=== PATIENT | female | born 1935 | race Caucasian/White ===

== ENCOUNTER → 2016-07-27 | Outpatient (CLI) | payer OTHER ==
[~2016-07-27] MED LIST: AMLO-110 PO; ASPI81TA28 PO; CALC-20 PO; CHOL100010 PO; LEVO88TA PO; SIMV10TA5 PO
[2016-07-27 14:02] LABS: ALT/SGPT 23 U/L (12-78); AST/SGOT 14 U/L (15-37); BASO % 0.6 %; BASO ABS # 0.03 K/uL (0-0.2); BLOOD UREA NITROGEN 19 mg/dl (7-18); BUN/CREATININE RATIO 21.8 (10-20); CALCIUM 9.5 mg/dl (8.5-10.1); CARBON DIOXIDE 31 mmol/L (21-32); CHLORIDE 104 mmol/L (98-107); COMPLETE YES; CREATININE 0.85 mg/dl (0.60-1.20); EOS % 2.3 %; GLUCOSE 97 mg/dl (70-99); HEMATOCRIT 42.4 % (37-47); LYMPH % 28.2 %; MEAN PLATELET VOLUME 10.6 fL (7.4-10.4); MONO % 9.8 %; NEUT % 59.1 %; PLATELET COUNT 188 K/uL (130-400); POTASSIUM 4.2 mmol/L (3.5-5.1); RED BLOOD COUNT 4.66 M/uL (4.2-5.4); SODIUM 141 mmol/L (136-145); WHITE BLOOD COUNT 5.31 K/uL (4.8-10.8)
[2016-07-27 14:04] LABS: ALB/GLOB RATIO 1.1 (0.9-2); ALKALINE PHOSPHATASE 72 U/L (45-117)
== END | disposition home or self-care (01) ==
LOC: C.LABBC 10:16
PROVIDERS: ATTEND Internal Medicine Hematology & Oncology
DX: C50.911 Malignant neoplasm of unspecified site of right female breast (principal)

== ENCOUNTER → 2016-08-12 | Outpatient (CLI) | payer OTHER ==
[2016-08-12 13:36] LABS: CHOLESTEROL/HDL RATIO 2.5; THYROID STIMULATING HORMONE 0.578 uIu/ml (0.300-4.500)
--- NOTE | 2016-08-18 09:21 | CODING QUERY MEDICAL NECESSITY ---
SUPPORTING DIAGNOSIS NEEDED A supporting diagnosis is required for the test/procedure performed on this patient in order for us to be reimbursed by the patient's insurance. Please provide a supporting diagnosis for the following test/procedure listed below next to the test name along with your signature. *If there is no additional diagnosis for this patient that would support the following test/procedure please document that below next to the test/procedure. Test(s)/Procedure(s) that require a supporting diagnosis: DOS 08/12 * Vitamin D DIAGNOSIS: Provider Signature: Date: Thank you Jacqueline Muller Health Information Management Once completed, please kindly fax back to [phone] For questions please call [phone]
== END | disposition home or self-care (01) ==
LOC: C.LABBC 10:13
PROVIDERS: ATTEND Family Medicine
DX: M85.80 Other specified disorders of bone density and structure, unspecified site (principal); E03.9 Hypothyroidism, unspecified; E78.5 Hyperlipidemia, unspecified

== ENCOUNTER → 2016-10-02 | Outpatient (CLI) | payer OTHER ==
--- NOTE | 2016-10-02 16:36 | MAMMOGRAPHY REPORT ---
BILATERAL DIGITAL SCREENING MAMMOGRAM WITH CAD: 10/02/2016 TECHNIQUE: Current study was also evaluated with a Computer Aided Detection (CAD) system. Bilatera l CC and MLO views were obtained. COMPARISON: Comparison is made to exams dated: 09/30/2015 mammogram, 08/07/2013 mammogram, 10/21/2015 m ammogram, 09/27/2014 mammogram, 08/22/2012 mammogram, and 11/15/2015 mammogram - [facility] enter. BREAST COMPOSITION: There are scattered areas of fibroglandular density in both breasts. FINDINGS: There are new post surgical changes in the right lower inner quadrant posteriorly from pr ior lumpectomy, with new density and surgical clips seen at the lumpectomy bed. The lumpectomy bed is only partially visualized on this exam due to the far posterior location. As this is the first f ollow-up after surgery, recommend spot magnification views of the region to better evaluate the lump ectomy bed. The remainder of both breasts are stable compared to prior exams, without suspicious masses, calcifi cations, or areas of architectural distortion noted. Bilateral benign-appearing calcifications are not significantly changed. Small benign-appearing left breast masses are also stable. IMPRESSION: ACR BI-RADS CATEGORY 0: INCOMPLETE EVALUATION: NEED ADDITIONAL IMAGING EVALUATION The lumpectomy bed is not well-visualized on the current exam due to the far posterior location. Re commend spot magnification views of the right lumpectomy bed for further evaluation, given that this is the first follow-up after surgery. The patient will be called to schedule an appointment. Approximately 10% of breast cancers are not detected with mammography. A negative mammographic repor t should not delay biopsy if a clinically suggestive mass is present. Zena Rivera M.D. /:10/02/2016 16:10:52 Sterile Processing Tech: Nishi HARE(Kandis)(M), [facility] letter sent: Addl Imaging 0 BI-RADS Code: ACR BI-RADS Category 0: Incomplete Evaluation: Need Additional Imaging Evaluation
== END | disposition home or self-care (01) ==
LOC: C.MAMM 10:51
PROVIDERS: ATTEND Family Medicine
DX: Z12.31 Encounter for screening mammogram for malignant neoplasm of breast (principal)

== ENCOUNTER → 2016-10-13 | Outpatient (CLI) | payer OTHER ==
--- NOTE | 2016-10-13 16:38 | MAMMOGRAPHY REPORT ---
UNILATERAL RIGHT DIGITAL DIAGNOSTIC MAMMOGRAM AND TARGETED RIGHT ULTRASOUND: 10/13/2016 CLINICAL HISTORY: 80-year-old woman with a personal history of right breast cancer diagnosed in 2015 status post lumpectomy and radiation therapy. She was called back from her first mammogram s tatus post treatment for further evaluation of the lumpectomy bed. TECHNIQUE: Spot magnification right CC and ML views were obtained. COMPARISON: Comparison is made to exams dated: 10/13/2016 ultrasound, 10/02/2016 mammogram, 11/15/2015 specimen, 11/15/2015 mammogram, 10/21/2015 ultrasound biopsy, and 10/21/2015 mammogram - [facility]. BREAST COMPOSITION: There are scattered areas of fibroglandular density in the right breast. FINDINGS: The spot magnification views obtained in the lower inner far posterior right breast demons trate visualization of nearly every surgical clip. A small amount of pectoralis muscle is visualize d on the spot magnification CC view. There is no evidence of a suspicious mass, unexpected architec tural distortion or suspicious microcalcifications near the well-visualized surgical site. Addition al evaluation with ultrasound was performed. Real-time high-resolution sonographic evaluation was performed along the surgical scar in the 4:30 r ight breast, 5 cm from the nipple, near the inframammary fold. There is mild appreciated architectu ral distortion without evidence of a suspicious solid or cystic mass. IMPRESSION: ACR-BI-RADS CATEGORY 3: PROBABLY BENIGN, TARGETED ULTRASOUND ACR-BI-RADS CATEGORY 3: CA OBABLY BENIGN Improved visualization of the lumpectomy bed in the lower inner far posterior right breast and targe yonas ultrasound demonstrated no suspicious abnormality or evidence of malignancy. There are expected post-therapeutic changes in the right breast. Recommend bilateral diagnostic mammograms in one year, given the personal history of right breast ca ncer, in case any additional mammographic views and/or ultrasound need to be performed, particularly given the far posterior location of the surgical site. These results and recommendations were discussed with the patient at the time of the exam. Approximately 10% of breast cancers are not detected with mammography. A negative mammographic repor t should not delay biopsy if a clinically suggestive mass is present. Tosha Hare M.D. ay/:10/13/2016 14:37:18 Gizzard Peeler: Nishi Cole, [facility] letter sent: Follow Up Recommended 3 BI-RADS Code: ACR-BI-RADS Category 3: Probably Benign Ultrasound BI-RADS: ACR-BI-RADS Category 3: P robably Benign
== END | disposition home or self-care (01) ==
LOC: C.MAMM 13:43
PROVIDERS: ATTEND Family Medicine
DX: Z85.3 Personal history of malignant neoplasm of breast (principal); Z08 Encounter for follow-up examination after completed treatment for malignant neoplasm

== ENCOUNTER → 2017-08-13 | Outpatient (CLI) | payer OTHER ==
[2017-08-13 17:13] LABS: HEMATOCRIT 40.6 % (37-47); MEAN CELL VOLUME 92.1 fL (80-100); MEAN CORPUSCULAR HEMOGLOBIN 29.5 pg (25-34); MEAN PLATELET VOLUME 10.2 fL (7.4-10.4); PLATELET COUNT 214 K/uL (130-400); RED CELL DISTRIBUTION WIDTH CV 13.6 % (11.5-14.5); RED CELL DISTRIBUTION WIDTH SD 45.6 fL (36.4-46.3); WHITE BLOOD COUNT 4.99 K/uL (4.8-10.8)
[2017-08-13 17:42] LABS: ALBUMIN 3.7 gm/dl (3.4-5.0); ALT/SGPT 22 U/L (12-78); BLOOD UREA NITROGEN 19 mg/dl (7-18); CALCIUM 9.4 mg/dl (8.5-10.1); CARBON DIOXIDE 29 mmol/L (21-32); CHOLESTEROL 128 mg/dl (0-200); CREATININE 0.78 mg/dl (0.60-1.20); GLUCOSE 105 mg/dl (70-99); POTASSIUM 4.1 mmol/L (3.5-5.1); SODIUM 138 mmol/L (136-145)
[2017-08-13 17:53] LABS: ALKALINE PHOSPHATASE 66 U/L (45-117); AST/SGOT 20 U/L (15-37); LDL CHOLESTEROL CALCULATED 54 mg/dl; TOTAL PROTEIN 7.4 gm/dl (6.4-8.2)
== END | disposition home or self-care (01) ==
LOC: C.LABPBG 11:18
PROVIDERS: ATTEND Family Medicine
DX: E03.9 Hypothyroidism, unspecified (principal); E78.5 Hyperlipidemia, unspecified; I10 Essential (primary) hypertension; M85.80 Other specified disorders of bone density and structure, unspecified site

== ENCOUNTER → 2017-10-20 | Outpatient (CLI) | payer OTHER ==
--- NOTE | 2017-10-20 15:23 | MAMMOGRAPHY REPORT ---
BILATERAL DIGITAL DIAGNOSTIC MAMMOGRAM TOMOSYNTHESIS WITH CAD: 10/20/2017 CLINICAL HISTORY: History of right breast cancer status post lumpectomy October 2015. The patient repo rts no new lumps or other complaints. TECHNIQUE: Breast tomosynthesis in addition to standard 2D mammography was performed. Current study was also evaluated with a Computer Aided Detection (CAD) system. Bilateral CC and MLO 2D and tomosyn thesis images were obtained. COMPARISON: Comparison is made to exams dated: 10/13/2016 mammogram, 10/13/2016 ultrasound, 10/02/2016 mammogram, 11/15/2015 specimen, 11/15/2015 mammogram, and 10/21/2015 mammogram - [facility] nter. BREAST COMPOSITION: There are scattered areas of fibroglandular density in both breasts. FINDINGS: There are stable postsurgical changes in the right lower inner quadrant posteriorly from pr ior lumpectomy, including stable architectural distortion and surgical clips at the lumpectomy bed. The remainder of both breasts are stable compared to prior exams, without suspicious masses, calcific ations, or areas of architectural distortion noted. Scattered bilateral benign-appearing calcificati ons are not significantly changed. Bilateral asymmetries/benign-appearing masses are also stable. IMPRESSION: ACR BI-RADS CATEGORY 2: BENIGN There is no mammographic evidence of malignancy in either breast. Routine bilateral mammograms are r ecommended in 1 year; given the personal history of breast cancer, the patient could choose to have d iagnostic or screening mammograms. The patient has been verbally notified of the results. Approximately 10% of breast cancers are not detected with mammography. A negative mammographic report should not delay biopsy if a clinically suggestive mass is present. Zena Rivera M.D. /:10/20/2017 14:11:42 Partnership Development Manager: Norma Salazar RT(R)(M), [facility] letter sent: Normal 1/2 BI-RADS Code: ACR BI-RADS Category 2: Benign
== END | disposition home or self-care (01) ==
LOC: C.MAMM 13:08
PROVIDERS: ATTEND Internal Medicine Hematology & Oncology
DX: Z85.3 Personal history of malignant neoplasm of breast (principal)

== ENCOUNTER → 2018-02-10 | Outpatient (CLI) | payer OTHER ==
[~2018-02-10] MED LIST changes: -AMLO-110 PO; +AMLO5TAB3 PO
[2018-02-10 17:18] LABS: ALT/SGPT 26 U/L (12-78); AST/SGOT 20 U/L (15-37); BLOOD UREA NITROGEN 17 mg/dl (7-18); CALCIUM 9.1 mg/dl (8.5-10.1); CARBON DIOXIDE 28 mmol/L (21-32); CHOLESTEROL 132 mg/dl (0-200); CREATININE 0.85 mg/dl (0.60-1.20); GLUCOSE 121 mg/dl (70-99); LDL CHOLESTEROL CALCULATED 56 mg/dl; SODIUM 140 mmol/L (136-145)
== END | disposition home or self-care (01) ==
LOC: C.LABPBG 11:13
PROVIDERS: ATTEND Family Medicine
DX: E03.9 Hypothyroidism, unspecified (principal); E78.5 Hyperlipidemia, unspecified; I10 Essential (primary) hypertension